=== PATIENT | female | born 1955 | race Caucasian/White ===

== ENCOUNTER 2017-03-07 07:11 | Day surgery (SDC) | payer OTHER ==
[~2017-03-07] VITALS: Ht 165.1 cm; Wt 76.7 kg
[~2017-03-07 07:11] MED LIST: ASPIR-LOW81 MG PO; COREG3.125 MG PO; COZAAR50 MG PO; GLUCOPHAGE500 MG PO; LEVOTHYROXINE25 MCG PO; LOVASTATIN40 MG PO; NITROSTAT0.4 MG SL; PANTOPRAZOLE SO40 MG PO
--- NOTE | 2017-03-07 08:45 | NUR ---
03/07/17 0845 Violette Dill 0840 - PT ARRIVED TO PACU. CBG = 101. PT RESPONDING TO STIMULI BUT NOT ANSWERING QUESTIONS AT THIS TIME. PT MAINTAINING OWN AIRWAY.
--- NOTE | 2017-03-07 08:49 | NUR ---
PT RESTING, BY HER SIDE. FIRST SCOPE, SHE SEEMED TO DEAL WELL WITH PREP. PT REQUESTED PRAYER, WILL FOLLOW NEEDED
--- NOTE | 2017-03-07 18:46 | OR ---
[facility] [address], [place] [address] Signed DATE OF OPERATION: 03/07/2017 SURGEON: Chuck Foster MD PREOPERATIVE DIAGNOSES: 1. Father with a history of colonic polyps in 2003. 2. Maternal grandfather with colonic polyps in his 80s. POSTOPERATIVE DIAGNOSIS: Internal anal skin tags. PROCEDURE: Colonoscopy without biopsy. ESTIMATED BLOOD LOSS: None. INDICATIONS: Cassandra is a 61-year-old female, who was asked to see me for her initial colonoscopy. Her father had colonic polyps removed back in 2003 and her paternal grandfather had colonic polyps removed in his 80s. Cassandra has no lower GI complaints. In the office, I gave Cassandra a pamphlet on colonoscopy and we looked at that together along with the risks including, but not limited to, gas bloating, crampy abdominal pain, bleeding, perforation, requiring surgery, and missed diagnosis. We also discussed the need for IV conscious sedation. She had expressed understanding and wished to proceed. PROCEDURE NOTE: Cassandra was taken into our endoscopy suite and placed in the left lateral decubitus position. She was given a preoperative antibiotic. She was given divided doses of 3 mg of Versed and 100 mcg of fentanyl for the procedure. A digital rectal exam was performed and this was unremarkable except I could feel some internal anal skin tags. After this, the adult colonoscope was introduced and advanced quite readily into the cecum itself. Her prep was good. There were several areas of liquid particulate stool matter, most of which was suctioned out. The scope was slowly withdrawn. We found no pathology throughout the entire colon or rectum. Upon retroflexion of scope, she has several tiny internal anal skin tags. After this, the gas was suctioned out and the colonoscope removed. Cassandra tolerated the procedure quite well. RECOMMENDATIONS: Cassandra can follow up in 5 years for repeat colonoscopy due to her family history. She is Electronically Signed By: CHUCK FOSTER MD 03/07/17 1846 PATIENT NAME: CASSANDRA KAT OPERATIVE REPORT DATE OF : 59 PHYSICIAN: CHUCK FOSTER MD REPORT #: [id number] REPORT IS CONFIDENTIAL AND NOT TO BE RELEASED WITHOUT AUTHORIZATION [address] [place] [address] Signed also welcome to resume her medications today including her aspirin. MD BARRY Cast/SUSHILAL /[id number] cc: MD Izabel Marquez PA-C Electronically Signed By: CHUCK FOSTER MD 03/07/17 1846 PATIENT NAME: CASSANDRA KAT OPERATIVE REPORT DATE OF : 59 PHYSICIAN: CHUCK FOSTER MD REPORT #: [id number] REPORT IS CONFIDENTIAL AND NOT TO BE RELEASED WITHOUT AUTHORIZATION
== END 2017-03-07 09:15 | disposition home or self-care (01) ==
LOC: DS 07:11 → OPS 07:11 → DS 08:15 → OPS 09:15
PROVIDERS: Colon & Rectal Surgery
PROC: 0DJD8ZZ Inspection of Lower Intestinal Tract, Via Natural or Artificial Opening Endoscopic (ICD-10-PCS; principal; 2017-03-07 08:15)
DX: Z12.11 Encounter for screening for malignant neoplasm of colon (principal); E78.5 Hyperlipidemia, unspecified; E03.9 Hypothyroidism, unspecified; E11.319 Type 2 diabetes mellitus with unspecified diabetic retinopathy without macular edema; D50.9 Iron deficiency anemia, unspecified; Z98.890 Other specified postprocedural states; Z90.89 Acquired absence of other organs; Z88.1 Allergy status to other antibiotic agents; Z88.8 Allergy status to other drugs, medicaments and biological substances; Z79.82 Long term (current) use of aspirin; Z79.84 Long term (current) use of oral hypoglycemic drugs; Z79.899 Other long term (current) drug therapy
CPT/HCPCS: 99153; G0500; J2250; J3010; J7120